=== PATIENT | female | born 1990 | race Caucasian/White ===

== ENCOUNTER 2017-10-18 21:12 | Emergency (ER) | payer SELFPAY ==
[2017-10-18 21:43] VITALS: O2SAT 100
--- NOTE | 2017-10-18 23:07 | C.PDOC ---
History Of Present Illness 27 y/o female presents to ED with c/o intermittent abdominal pain that began yesterday evening. Pt denies dysuria, fever, nausea, vomiting, vaginal bleeding or any other physical problems. Pt states she currently has no pain. Pt was positive for a home test, states it's her first , and LMP was September 12, 2017. Patient hasn't seen MANAGER RECRUITING. Time Seen by Provider: 10/18/17 23:07 Chief Complaint (Nursing): Abdominal Pain History Per: Patient History/Exam Limitations: no limitations Onset/Duration Of Symptoms: Days (1) Current Symptoms Are (Timing): Still Present Quality Of Discomfort: Unable To Describe Associated Symptoms: denies: Fever, Chills, Nausea, Vomiting, Diarrhea, Chest Pain Exacerbating Factors: None Alleviating Factors: None Recent travel outside of the [place]: No Abnormal Vaginal Bleeding: No Past Medical History Reviewed: Historical Data, Nursing Documentation, Vital Signs Vital Signs: Last Vital Signs Temp 98.7 F 10/19/17 03:03 Pulse 96 H 10/19/17 03:03 Resp 16 10/19/17 03:03 BP 112/69 10/19/17 03:03 Pulse Ox 100 10/19/17 04:03 - Medical History PMH: No Chronic Diseases Surgical History: No Surg Hx Family History: States: No Known Family Hx - Social History Hx Alcohol Use: No Hx Substance Use: No Review Of Systems Constitutional: Negative for: Fever, Chills Cardiovascular: Negative for: Chest Pain, Palpitations Respiratory: Negative for: Cough, Shortness of Breath Gastrointestinal: Positive for: Abdominal Pain. Negative for: Nausea, Vomiting , Diarrhea Genitourinary: Negative for: Dysuria, Hematuria, Vaginal Discharge, Vaginal Bleeding Neurological: Negative for: Weakness, Numbness Physical Exam - Physical Exam Appears: Well, Non-toxic, No Acute Distress Skin: Warm, Dry Head: Atraumatic Eye(s): bilateral: PERRL Oral Mucosa: Moist Neck: Supple Chest: Symmetrical, No Tenderness Cardiovascular: Rhythm Regular Respiratory: No Decreased Breath Sounds, No Accessory Muscle Use, No Rales, No Rhonchi, No Stridor, No Wheezing Gastrointestinal/Abdominal: Soft, No Tenderness, No Distention, No Guarding, No Rebound Neurological/Psych: Oriented x3, Other (No focal deficits) ED Course And Treatment O2 Sat by Pulse Oximetry: 100 (Room air) Pulse Ox Interpretation: Normal Disposition - Disposition Referrals: [facility] [Outside] Disposition: HOME/ ROUTINE Disposition Time: 04:06 Condition: STABLE Additional Instructions: Please follow up with an OBGYN doctor. Call tomorrow to make an appointment. Return to the ER for any worsening symptoms, repeated vomiting, lightheadedness , chest pain, difficulty breathing, or for any other concerns. Instructions: Abdominal Pain in (ED) Forms: [employer] (Ugandan), General Discharge Instructions - Clinical Impression Clinical Impression: Abdominal pain during - Scribe Statement The provider has reviewed the documentation as recorded by the Scribe Ivett Cornelius All medical record entries made by the Scribe were at my direction and personally dictated by me. I have reviewed the chart and agree that the record accurately reflects my personal performance of the history, physical exam, medical decision making, and the department course for this patient. I have also personally directed, reviewed, and agree with the discharge instructions and disposition.
[2017-10-18 23:35] LABS: SQUAMOUS EPITHIAL 3 /hpf (0-5); URINE BILIRUBIN NEGATIVE (NEGATIVE); URINE BLOOD NEGATIVE (NEGATIVE); URINE CLARITY Clear (Clear); URINE COLOR Yellow (YELLOW); URINE GLUCOSE (UA) NORMAL (Normal); URINE LEUKOCYTE ESTERASE NEG Leu/uL (Negative); URINE NITRATE NEGATIVE (NEGATIVE); URINE PROTEIN NEGATIVE (NEGATIVE); URINE UROBILINOGEN NORMAL mg/dL (0.2-1.0)
[2017-10-19 03:07] VITALS: BP 112/69; PULSE 96; RESP 16; TEMP 98.7
--- NOTE | 2017-10-19 04:05 | US ---
EXAM: US First Trimester, Transabdominal US , Transvaginal EXAM DATE/TIME: 10/19/2017 1:00 AM CLINICAL HISTORY: 27 years old, female; Pain; complicated by abdominal or pelvic pain; Lower; First trimester; Gestational age or lmp: 09/12/17; ; Additional info: R/O ectopic TECHNIQUE: Real-time transabdominal and transvaginal obstetrical ultrasound of the maternal pelvis and a first trimester with image documentation. Transvaginal imaging was used for better evaluation of the fetus and adnexa. COMPARISON: No relevant prior studies available. FINDINGS: Uterus: Measures 9.4 x 4.8 x 5.8 cm. Single early intrauterine gestation identified. pole and yolk sac are seen. Estimated gestational age is 5 weeks, 5 days, based on the crown rump length. heart motion visualized, at 117 beats per minute. Estimated delivery date is 06/17/2018. Cervix appears closed. Right ovary: Measures 3 x 2 x 2.5 cm. Contains a 2.0 complex cystic lesion. This lesion has a thick wall, a crenulated appearance, internal septations, internal echoes, and increased peripheral blood flow on color imaging. It most likely represents a corpus luteal cyst, given its appearance. Flow seen in the right ovary on color and Doppler imaging, with no evidence of torsion. Left ovary: Within normal limits in appearance. Measures 2.3 x 2.1 x 1.1 cm. Flow seen in the left ovary on color and Doppler imaging, with no evidence of torsion. Cul de sac: Small amount of free fluid identified. IMPRESSION: Early 5 week, 5 day intrauterine with heart motion. Small amount of free fluid in the cul-de-sac. Probable corpus luteal cyst in the right ovary. See above for remaining findings.
== END 2017-10-19 04:15 | disposition home or self-care (01) ==
LOC: C.ER 21:12
DX: O26.891 Other specified pregnancy related conditions, first trimester (principal); R10.9 Unspecified abdominal pain; Z3A.01 Less than 8 weeks gestation of pregnancy

== ENCOUNTER 2017-11-07 10:02 | Emergency (ER) | payer OTHER ==
[2017-11-07 10:13] VITALS: BMI 24.9
[2017-11-07 10:14] VITALS: TEMP 98.1
[2017-11-07 11:10] LABS: BASO % 0.8 % (0.0-2.0); EOS # 0.1 K/uL (0.0-0.7); EOS % 2.2 % (0.0-4.0); HEMOGLOBIN 11.6 g/dL (11.0-16.0); LYMPH # 1.1 K/uL (1.0-4.3); LYMPH % 19.5 % (20.0-40.0); MEAN CELL VOLUME 88.2 fL (81.0-99.0); MEAN CORPUSCULAR HEMOGLOBIN 31.1 pg (27.0-31.0); MEAN CORPUSCULAR HGB CONC 35.3 g/dL (33.0-37.0); MEAN PLATELET VOLUME 8.7 fL (7.2-11.7); MONO # 0.4 K/uL (0.0-0.8); MONO % 6.1 % (0.0-10.0); NEUT # 4.2 K/uL (1.8-7.0); NEUT % 71.4 % (50.0-75.0); RBC 3.73 Mil/uL (3.80-5.20); RED CELL DISTRIBUTION WIDTH 12.5 % (11.5-14.5); WHITE BLOOD COUNT 5.9 K/uL (4.8-10.8)
[2017-11-07 11:14] LABS: HCG,QUALITATIVE URINE POSITIVE (NEGATIVE)
[2017-11-07 11:19] LABS: SQUAMOUS EPITHIAL 7 /hpf (0-5); URINE BILIRUBIN NEGATIVE (NEGATIVE); URINE BLOOD 2+ (NEGATIVE); URINE CLARITY Hazy (Clear); URINE COLOR Yellow (YELLOW); URINE GLUCOSE (UA) NORMAL (Normal); URINE LEUKOCYTE ESTERASE TRACE Leu/uL (Negative); URINE NITRATE NEGATIVE (NEGATIVE); URINE PROTEIN NEGATIVE (NEGATIVE); URINE UROBILINOGEN NORMAL mg/dL (0.2-1.0)
[2017-11-07 11:23] LABS: ALB/GLOB RATIO 1.2 (1.0-2.1); ALBUMIN 3.9 g/dL (3.5-5.0); ALT/SGPT 20 U/L (9-52); AST/SGOT 14 U/L (14-36); BLOOD UREA NITROGEN 4 mg/dL (7-17); CALCIUM 8.9 mg/dl (8.6-10.4); GFR AFRICAN-AMERICAN > 60; GFR NON-AFRICAN AMERICAN > 60
--- NOTE | 2017-11-07 12:20 | US ---
PROCEDURE: OB Pelvic Ultrasound HISTORY: preg bleeding COMPARISON: None available. FINDINGS: UTERUS: Single Live intrauterine gestation. CRL: 21 mm equals 8 weeks 5 days gestation Gestational sac: 43 mm equals 9 weeks 5 days gestation age (Ultrasound estimated): 9 weeks 1 day Date of delivery (Ultrasound estimated) : 06/11/2018 Heart rate: 182 bpm. Dona-gestational hemorrhage: None. Uterus measures 12.1 x 5.9 x 6.8 cm. No mass CERVIX: Cervix closed and measures 3.5 cm RIGHT OVARY: Measures 2.3 x 2.0 x 1.9 cm. No mass. Normal flow. Corpus luteum, 1.5 x 1.6 x 1.9 cm with characteristic peripheral hypervascularity. LEFT OVARY: Measures 2.0 x 1.5 x 2.1 cm. No mass. Normal flow. FREE FLUID: None. OTHER FINDINGS: None. IMPRESSION: Single live intrauterine gestation of approximately 9 weeks 1 day by ultrasound examination. The OSVALDO 06/11/2018. No subchorionic hemorrhage. 182 beats per minute. Cervix closed.
--- NOTE | 2017-11-07 12:30 | C.PDOC ---
History Of Present Illness 27 y/o female and currently 8 weeks presents to ED with complaints of vaginal spotting since yesterday. Patient notes blood when she wipes after urinating. Patient reports brownish blood yesterday and today bright red blood. (+) urinary frequency. Denies nausea, vomiting, dysuria, fever , or abdominal pain. Time Seen by Provider: 11/07/17 10:14 Chief Complaint (Nursing): Female Genitourinary History Per: Patient History/Exam Limitations: no limitations Onset/Duration Of Symptoms: Days Current Symptoms Are (Timing): Still Present Associated Symptoms: Urinary Symptoms. denies: Nausea, Vomiting Past Medical History Reviewed: Historical Data, Nursing Documentation, Vital Signs Vital Signs: Last Vital Signs Temp 98.1 F 11/07/17 10:13 Pulse 84 11/07/17 12:42 Resp 16 11/07/17 12:42 BP 119/76 11/07/17 12:42 Pulse Ox 100 11/07/17 13:36 - Medical History PMH: No Chronic Diseases Surgical History: No Surg Hx Family History: States: No Known Family Hx - Social History Hx Alcohol Use: No Hx Substance Use: No - Immunization History Hx Tetanus Toxoid Vaccination: No Hx Influenza Vaccination: No Hx Pneumococcal Vaccination: No Review Of Systems Constitutional: Negative for: Fever, Chills Gastrointestinal: Negative for: Nausea, Vomiting, Abdominal Pain Genitourinary: Positive for: Frequency, Vaginal Bleeding. Negative for: Dysuria Musculoskeletal: Negative for: Back Pain Skin: Negative for: Rash Physical Exam - Physical Exam Appears: Non-toxic, No Acute Distress Skin: Warm, Dry, No Rash Head: Atraumatic, Normacephalic Eye(s): bilateral: Normal Inspection, EOMI Nose: Normal Oral Mucosa: Moist Neck: Normal ROM, Supple Chest: Symmetrical Cardiovascular: Rhythm Regular Respiratory: Normal Breath Sounds, No Accessory Muscle Use, No Rales, No Rhonchi , No Wheezing Gastrointestinal/Abdominal: Soft, No Tenderness, No Guarding, No Rebound Back: No CVA Tenderness Neurological/Psych: Oriented x3 ED Course And Treatment - Laboratory Results Result Diagrams: 11/07/17 10:56 11/07/17 10:56 O2 Sat by Pulse Oximetry: 100 (RA) Pulse Ox Interpretation: Normal - CT Scan/US Pelvic US Other Rad Studies (CT/US): Read By Radiologist, Radiology Report Reviewed CT/US Interpretation: PROCEDURE: OB Pelvic Ultrasound. HISTORY: preg bleeding. COMPARISON: None available. FINDINGS: UTERUS: Single Live intrauterine gestation. CRL: 21 mm equals 8 weeks 5 days gestation. Gestational sac: 43 mm equals 9 weeks 5 days gestation. age (Ultrasound estimated): 9 weeks 1 day. Date of delivery (Ultrasound estimated) : 06/11/2018. Heart rate: 182 bpm. Dona-gestational hemorrhage: None. Uterus measures 12.1 x 5.9 x 6.8 cm. No mass. CERVIX: Cervix closed and measures 3.5 cm. RIGHT OVARY: Measures 2.3 x 2.0 x 1.9 cm. No mass. Normal flow. Corpus luteum, 1.5 x 1.6 x 1.9 cm with characteristic peripheral hypervascularity. LEFT OVARY: Measures 2.0 x 1.5 x 2.1 cm. No mass. Normal flow. FREE FLUID: None. OTHER FINDINGS: None. IMPRESSION: Single live intrauterine gestation of approximately 9 weeks 1 day by ultrasound examination. The OSVALDO 06/11/2018. No subchorionic hemorrhage. 182 beats per minute. Cervix closed. Progress Note: Patient declines pain medication . Discussed results with pt and instructed re-evaluation in 2-3 days for repeat testing. Disposition - Disposition Disposition: HOME/ ROUTINE Disposition Time: 12:28 Condition: STABLE Additional Instructions: Repeat blood work in 2-3 days. Return to ER if symptoms persist or worsen. 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 - Scribe Statement The provider has reviewed the documentation as recorded by the Sommer Chan All medical record entries made by the Sommer were at my direction and personally dictated by me. I have reviewed the chart and agree that the record accurately reflects my personal performance of the history, physical exam, medical decision making, and the department course for this patient. I have also personally directed, reviewed, and agree with the discharge instructions and disposition.
[2017-11-07 12:42] VITALS: BP 119/76; PULSE 84; RESP 16
[2017-11-07 13:35] VITALS: O2SAT 100
== END 2017-11-07 12:43 | disposition home or self-care (01) ==
LOC: C.ER 10:02
DX: O20.9 Hemorrhage in early pregnancy, unspecified (principal); Z3A.08 8 weeks gestation of pregnancy

== ENCOUNTER 2018-06-13 17:28 | Inpatient (IN) | payer MEDICAID, OTHER ==
[2018-06-13] MEDS ORDERED: Lactated Ringer's 1,000 ML IV ONE (18:17)
[2018-06-13 18:21] VITALS: BMI 25.6
[2018-06-13] MEDS ORDERED: Lactated Ringer's 1,000 ML IV SCH (19:00)
[2018-06-13 20:11] LABS: BASO % 0.3 % (0.0-2.0); EOS # 0.1 K/uL (0.0-0.7); EOS % 0.5 % (0.0-4.0); HEMOGLOBIN 12.4 g/dL (11.0-16.0); LYMPH # 1.7 K/uL (1.0-4.3); LYMPH % 16.1 % (20.0-40.0); MEAN CORPUSCULAR HEMOGLOBIN 31.2 pg (27.0-31.0); MEAN CORPUSCULAR HGB CONC 34.7 g/dL (33.0-37.0); MEAN PLATELET VOLUME 8.8 fL (7.2-11.7); MONO # 0.7 K/uL (0.0-0.8); MONO % 6.6 % (0.0-10.0); NEUT # 8.1 K/uL (1.8-7.0); NEUT % 76.5 % (50.0-75.0); NRBC % 0.2 % (0.0-2.0); RBC 3.96 Mil/uL (3.80-5.20); RED CELL DISTRIBUTION WIDTH 12.9 % (11.5-14.5); WHITE BLOOD COUNT 10.6 K/uL (4.8-10.8)
[2018-06-13 20:24] LABS: ALB/GLOB RATIO 1.1 (1.0-2.1); ALBUMIN 3.4 g/dL (3.5-5.0); ALT/SGPT 25 U/L (9-52); AST/SGOT 15 U/L (14-36); BLOOD UREA NITROGEN 5 mg/dL (7-17); CALCIUM 8.9 mg/dl (8.6-10.4); GFR NON-AFRICAN AMERICAN > 60; SQUAMOUS EPITHIAL 7 /hpf (0-5); URINE BILIRUBIN NEGATIVE (NEGATIVE); URINE BLOOD 3+ (NEGATIVE); URINE CLARITY Hazy (Clear); URINE COLOR Yellow (YELLOW); URINE GLUCOSE (UA) NORMAL (Normal); URINE LEUKOCYTE ESTERASE TRACE Leu/uL (Negative); URINE PROTEIN 1+ mg/dL (NEGATIVE); URINE UROBILINOGEN NORMAL mg/dL (0.2-1.0)
--- NOTE | 2018-06-13 20:55 | OBHP ---
Datetime: 06/13/2018 20:03 IP Adm Impression: Term, intrauterine ; No Active Labor; Intact Membranes IP Admit Plan: Admit to unit; Initiate labor protocol IP Admit Plan Other: cervical ripening Admit Comment, IP Provider: Patient first seen and evaluated at approximately 1755 hours 28 y.o. , LMP 09/12/17, OSVALDO 06/19/18, EGA 39w 1d, c/o vaginal spotting 1700 hours. (+) Ctx, cee ry 10 - 15 minutes, onset 9/3, pain scale 5/10. care: [facility], OB practice - significant for U/ L luda renal artery; declined amnio. Vit D deficiency P Ob: Primip P MANAGER ANALYTICAL: 13 x 26 x 5. No h/o STI PMH: denies PSH: denies NKDA Meds: PNV, Vit D - each QD Soc Hx: denies tobacco, illicit drug or EtOH use. x 4 years. 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 Father alive 60 y.o., both, no med issues. No known fam h/o cancer P.E.: as above. WD, in NAD; (+) discomfort with contractions. Awake, laert, oriented to time, per son and place. Pleasant and cooperative Assessment: 28 y.o. P0, 39w 1d, latent phase of labor. Presumed renal anomaly, declined amni ocentesis. GBS (-). Category 1 tracing. Clinically stable. Plan: 1) IVFs 2) Re-examine Addendum: 1850 hours - patient states contractions are stronger and coming more frequently, every 5 minutes - cervical exam: 3-4/40/-3 - FHR: 140 bpm (+) accels; (-) decels. (+) modearate variability - [place]: every 5-6 minutes Plan: 1) Admit 2) NPO 3) IVFs 4) Continuous EFM 5) Admission labs 6) Cytotec 7) Pain relief, upon request 8) Antiicpate vaginal delivery Pelvic Type - PN: Adequate Extremities - PN: Normal Abdomen - PN: Normal Back - PN: Normal Breast - PN: Not Done Lungs - PN: Normal Heart - PN: Normal Thyroid - PN: Not Done Neurologic - PN: Normal HEENT - PN: Normal General - PN: Normal Presentation-Admit: Vertex FHR - Baseline A Provider: 140 Membranes, Provider: Intact Contraction Comments Provider: 4-6 Comments, ACOG Physical Exam: Abdomen: Gravid. Soft. Fundal height 36 cm Allother systems reviewed and are negative Gestation - Est Wks by US: 39w 1d EGA AdmitDate IP: 39.1 Vital Signs Provider: Reviewed; Within Normal Limits IP Indication for Induction: Not Applicable IP Chief Complaint: Uterine contractions NICHD Variability Prov Fetus A: Moderate 6-25bpm NICHD Accel Fetus A IP Provider: [id number] FHR Category Provider Fetus A: Category I NICHD Decel Fetus A IP Provider: None Dilatation, Provider: 3 Effacement, Provider: 40 Station, Provider: -3 Genitourinary Exam: Normal DTRs - PN: Normal
[2018-06-13] MEDS ORDERED: Bupivacaine HCl/FentaNYL Cit 100 ML EPI ONE (22:04)
--- NOTE | 2018-06-14 05:09 | OBDS ---
DELIVERY PERSONNEL Nurse Dye Maker Certified: N/A Delivery Doctor: DR CHAMBERS Scrub Nurse: N/A Adjustment Clerk: Katie Siu RN Anesthesiologist: DR MELÉNDEZ Log Marker: DANIELA Resident: NCirilo MATERNAL INFORMATION Delivery Anesthesia: Epidural Medications in Delivery: PITOCIN 20 UNITS IN 1L LR Placenta Cultured: No Maternal Complications: None Provider Comments: , live male , YUE poslition, loose nuchal cord x 1 easily reduced over i nfant's head. Mouth and nose bulb-suctioned. Umbilical cord doubly clamped and cut; infant placed on mother's abdomen. Spontaneous delivery of placenta - grossly intact; 3 vessel cord. Uterine exploratoin performed; uterus contracted and firm Examination of cervix, vagina, perineum - 3rd degree laceration noted; repaired as above. Hemostas is assured Infant and mother bonding; both in stable condition EBL 500mL Weight 6lb 5oz 's 9/9 LABOR SUMMARY EDC: 06/19/2018 00:00 No. Babies in Womb: 1 Attempted: No Labor Anesthesia: Epidural LABOR INFORMATION Reason for Induction: Not Applicable Onset of Labor: 06/13/2018 10:00 Complete Dilatation: 06/14/2018 03:02 Cervical Ripening Agents: Cytotec @ (Annotations: 50 MCGMS GIVEN BUCCAL) Oxytocin: N/A Group B Beta Strep: Negative Steroids Given: None Reason Steroids Not Administered: Not Applicable MEMBRANES Membranes Rupture Method: Spontaneous Rupture of Membranes: 06/14/2018 00:50 Length of Rupture (hrs): 3.55 Amniotic Fluid Color: Clear Amniotic Fluid Amount: Moderate Amniotic Fluid Odor: Normal STAGES OF LABOR Stage 1 hrs: 17 Stage 1 min: 2 Stage 2 hrs: 1 Stage 2 min: 21 Stage 3 hrs: 0 Stage 3 min: 8 Total Time in Labor hrs: 18 Total Time in Labor min: 31 VAGINAL DELIVERY Episiotomy: None Laceration Extension: Third Degree Laceration Type: Perineal Laceration Repair: Yes Laceration Repair Note: 2-0 vicryl, transverse perineii; 2-0 chromic, vaginal mucosa and submucosa 3-0 chromic, subcuticular Hemostasis assured Patient tolerated procedure well Initial Vag Sponge Count: 1 LAP, 10 X-RAYS Initial Vag Sharps Count: 0 Final Vag Sharps Count: 3 (Annotations: Data stored by N on behalf of user) Sponge Count Correct: Yes Sharps Count Correct: Yes Count Comment: Correct BABY A INFORMATION Infant Delivery Date/Time: 06/14/2018 04:23 Method of Delivery: Vaginal Born in Route : No : N/A Forceps: N/A Vacuum Extraction: N/A Shoulder Dystocia : No SHOULDER DYSTOCIA BABY A Infant Delivery Date/Time: 06/14/2018 04:23 PRESENTATION/POSITION BABY A Presentation: Cephalic Cephalic Presentation: Vertex Breech Presentation: N/A PLACENTA INFORMATION BABY A Placenta Delivery Time : 06/14/2018 04:31 Placenta Method of Delivery: Spontaneous Placenta Status: Delivered SCORES BABY A Heart Rate 1 min: >100 bpm Resp Effort 1 min: Good Cry Reflex Irritability 1 min: Cough or Sneeze or Pulls Away Muscle Tone 1 min: Active Motion Color 1 min: Body [place], Extremities Blue Resuscitation Effort 1 min: N/A SCORE 1 MIN: 9 Heart Rate 5 min: >100 bpm Resp Effort 5 min: Good Cry Reflex Irritability 5 min: Cough or Sneeze or Pulls Away Muscle Tone 5 min: Active Motion Color 5 min: Body [place], Extremities Blue Resuscitation Effort 5 min: N/A SCORE 5 MIN: 9 INFORMATION BABY A Gestational Age at Delivery: 39.2 Gestational Status: Term Infant Outcome : Liveborn Condition : Stable Sex: Male IDENTIFICATION/MEDS BABY A ID Band Number: [id number] ID Band Location: Left Leg; Left Arm Sensor Applied: Yes Sensor Number: [id number] Sensor Location : Cord Clamp Vitamin K Given : Not Given Erythromycin Given: Not Given WEIGHT/LENGTH BABY A Birthweight (gms): 2850 Weight (lb): 6 Infant Weight (oz): 5 Infant Length Inches: 18.75 Length cms: 47.6 CORD INFORMATION BABY A No. Cord Vessels: #3 Nuchal Cord : Around Neck x1, Loose Cord Blood Taken: Yes Infant Suction: None ASSESSMENT BABY A Complications: None Physical Findings at Delivery: Within Normal Limits Infant Respirations: Appears Normal Maintenance Welder/ALS Called : No Transferred To: [facility]
[2018-06-14] MEDS ORDERED: Oxycodone/Acetaminophen 5/325 mg Tab PO PRN (05:13)
[2018-06-14] MEDS ORDERED: Benzocaine/Menthol 20%-0.5% Topical Spray (60 ml) TOP PRN (05:13)
[2018-06-14] MEDS: Multiple Vitamins Tab PO SCH (10:07)
[2018-06-15 08:44] VITALS: O2SAT 99
[2018-06-15 09:09] LABS: BASO % 0.4 % (0.0-2.0); EOS # 0.1 K/uL (0.0-0.7); EOS % 1.3 % (0.0-4.0); HEMOGLOBIN 11.5 g/dL (11.0-16.0); LYMPH # 1.7 K/uL (1.0-4.3); LYMPH % 21.9 % (20.0-40.0); MEAN CELL VOLUME 91.2 fL (81.0-99.0); MEAN CORPUSCULAR HEMOGLOBIN 31.6 pg (27.0-31.0); MEAN CORPUSCULAR HGB CONC 34.7 g/dL (33.0-37.0); MEAN PLATELET VOLUME 9.5 fL (7.2-11.7); MONO # 0.6 K/uL (0.0-0.8); NEUT # 5.5 K/uL (1.8-7.0); NEUT % 69.4 % (50.0-75.0); RBC 3.64 Mil/uL (3.80-5.20); RED CELL DISTRIBUTION WIDTH 13.3 % (11.5-14.5)
[2018-06-15] MEDS: Multiple Vitamins Tab PO SCH (09:33)
--- NOTE | 2018-06-16 07:52 | OBPPN ---
Datetime: 06/16/2018 07:47 PP Pain Prov: Within normal limits PP Nausea Prov: Denies PP Flatus Prov: Yes PP BM Prov: Yes PP Breasts Prov: Normal PP Heart Prov: Normal PP Lungs Prov: Normal PP Abdomen/Uterus Prov: Normal PP Lochia Prov: Normal PP CVA Tenderness Prov: Normal PP Extremities Prov: Normal PP C/S Incision Prov: Not Applicable PP Progress Prov: Normal PP Impression Prov: Normal progression PP Plan Prov: Discharge PP Progress Note Prov: s: some crmping relieved w/ motrin. denies perineal/vag pain at site of repai r i: s/p doing well p: d/c home rx motrin and pnv sitz baths nd perineal hygiene d/w pt IP PP Procedures: None Vital Signs Provider PP: Reviewed Vital Signs Provider Details PP: hgb 11.5 Datetime: 06/15/2018 19:02 PP Vulva/Perineum Prov: Normal PP Comments Phys Exam Prov: Breasts: no cracked or sorenipples Abdomen: Soft, Non distended. Fundus firm, mobile, non tender, 1 FB below umbilicus. Episiotomyhea ling well. Moderate lochia rubra Extremities: no calf tenderness; trace bilateral pedal edema All other systems reviewed and are negative
--- NOTE | 2018-06-16 07:52 | OBDCSUM ---
Datetime: 06/16/2018 07:49 Discharged to, Provider: Home Follow up at, Provider: with omer okeefe Disch Instr Activity: Normal activity Disch Instr Diet: Regular Discharge Instructions, Provider: Routine instructions given Discharge Diagnosis, Provider: Term Delivered Discharge Time: 06/16/2018 07:49 Follow up in weeks, Provider: 4-6wk/prn Disch Activity Restrictions: No sexual activity; Nothing in vagina - [place], tampons, douche Contraception after Delivery: Undecided
[2018-06-16 09:49] VITALS: BP 117/76; PULSE 90; RESP 18; TEMP 97.4
[2018-06-16] MEDS: Multiple Vitamins Tab PO SCH (10:41)
== END 2018-06-16 13:00 | disposition home or self-care (01) | DRG 373 ==
LOC: C.EROB 17:28 → UNDOADMIN 18:56 → C.4D 18:56 → C.4M 06-14 09:29
PROVIDERS: ADMIT Obstetrics & Gynecology; ATTEND Obstetrics & Gynecology
PROC: 10E0XZZ Delivery of Products of Conception, External Approach (ICD-10-PCS; principal; 2018-06-14)
PROC: 0DQR0ZZ Repair Anal Sphincter, Open Approach (ICD-10-PCS; 2018-06-14)
DX: O35.8XX0 Maternal care for other (suspected) fetal abnormality and damage, not applicable or unspecified (principal); O69.81X0 Labor and delivery complicated by cord around neck, without compression, not applicable or unspecified; O70.20 Third degree perineal laceration during delivery, unspecified; O99.284 Endocrine, nutritional and metabolic diseases complicating childbirth; E55.9 Vitamin D deficiency, unspecified; Z3A.39 39 weeks gestation of pregnancy; Z37.0 Single live birth